=== PATIENT | male | born 1990 | race Caucasian/White ===

== ENCOUNTER 2024-06-01 12:36 | Emergency (ER) | payer OTHER ==
[~2024-06-01] VITALS: Ht 177.8 cm; Wt 83.9 kg
[2024-06-01] MEDS ORDERED: FLUORESCEIN SOD 1 EA STRP OD ONE (12:45)
[2024-06-01] MEDS ORDERED: TETRACAINE HCL 0.5% 4 ML BTL OD ONE (12:45)
[2024-06-01 13:08] VITALS: BP 137/83
== END 2024-06-01 13:08 | disposition home or self-care (01) ==
LOC: ED 12:36
DX: H11.421 Conjunctival edema, right eye (principal)
CPT/HCPCS: 99283